=== PATIENT | female | born 1950 | race Caucasian/White ===

== ENCOUNTER → 2017-06-07 | Outpatient (CLI) | payer OTHER ==
--- NOTE | 2017-06-08 09:15 | RAD ---
EXAM: Right knee, 3 views HISTORY: Right knee pain. COMPARISON: None. FINDINGS: No fractures are identified. Joint spaces are maintained. There are small osteophytes all 3 compartments. Alignment is normal. There is no joint effusion. IMPRESSION: 1. Mild tricompartmental osteoarthritis.
== END | disposition home or self-care (01) ==
LOC: RAD 16:42
PROVIDERS: ATTEND Family Medicine
DX: M17.11 Unilateral primary osteoarthritis, right knee (principal); M25.761 Osteophyte, right knee
CPT/HCPCS: 73562